=== PATIENT | male | born 1965 | race Caucasian/White ===

== ENCOUNTER 2020-01-24 18:20 | Emergency (ER) | payer BC ==
[2020-01-24] MEDS ORDERED: FLU VACC QS2020-21(6MOS UP)/PF 60 MCG/0.5 ML SYRINGE IM ONE (19:15)
--- NOTE | 2020-01-24 19:18 | EDM.PDOC ---
ED HPI GENERAL MEDICAL PROBLEM - General Chief Complaint: Respiratory Problem Stated Complaint: SOB/COVID + Time Seen by Provider: 01/24/20 18:50 Source of Information: Reports: Patient History Limitations: Reports: No Limitations - History of Present Illness INITIAL COMMENTS - FREE TEXT/NARRATIVE: Mr. Collins is a very pleasant 54-year-old gentleman with no chronic medical proble ms, who states that he developed generalized body aches last 01/15/2020, then a fever on and off since 01/18/2020, with a T-max of 102.4 degrees tonight. He and his were tested for the SARS-CoV-2 virus this past 01/20/2020, both receiving a positive result on 01/22/2020. Around that time, the patient also developed dyspnea with exertion, although he denies dyspnea at rest. No other symptoms, such as nasal or sinus congestion, loss of taste or smell, cough, chest pain, palpitations, abdominal pain, or gastrointestinal symptoms. The patient states that he has been taking both acetaminophen and ibuprofen to treat his fever, but that he has not successfully been able to break it. Here in the ED, the patient's initial BP is found be mildly elevated at 148/89, otherwise, the patient is hemodynamically stable, afebrile, saturating 94% on room air. The patient's PCP is Dr. Fabiano Olson. His Orthopedic Surgeon is Dr. Timbo Martinez. He did not receive an influenza vaccine this season, but agreed to receive one here tonight. Generalized Pain Score (Numeric/FACES): 8 - Related Data Allergies Allergy/AdvReac Type Severity Reaction Status Date / Time No Known Allergies Allergy Verified 01/24/20 18:55 Home Meds: Home Meds . [No Known Home Meds] 01/24/20 [History] Past Medical History - Infectious Disease History Infectious Disease History: Reports: Novel Coronavirus (dx'd 01/20/2020) - Past Surgical History HEENT Surgical History: Reports: Oral Surgery (dental extractions) Musculoskeletal Surgical History: Reports: Arthroscopic Knee (right) Social & Family History - Tobacco Use Tobacco Use Status *Q: Never Tobacco User - Caffeine Use Caffeine Use: Reports: Coffee, Soda, Tea - Alcohol Use Alcohol Use History: Yes Alcohol Use Frequency: Socially - Recreational Drug Use Recreational Drug Use: No - Living Situation & Occupation Living situation: Reports: , with Spouse 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 ED EXAM, GENERAL - Physical Exam Exam: See Below Exam Limited By: No Limitations General Appearance: Alert, WD/WN, No Apparent Distress Eye Exam: Bilateral Eye: EOMI, Normal Inspection Ears: Normal External Exam, Hearing Grossly Normal Nose: Normal Inspection Throat/Mouth: Normal Inspection, Normal Lips, Normal Voice, No Airway Compromise Head: Atraumatic, Normocephalic Neck: Normal Inspection, Full Range of Motion Respiratory/Chest: No Respiratory Distress, Lungs Clear, Normal Breath Sounds, No Accessory Muscle Use, Chest Non-Tender. No: Decreased Breath Sounds, Crackles, Rhonchi, Wheezing, Stridor, Prolonged Expiration Cardiovascular: Normal Peripheral Pulses, Regular Rate, Rhythm, No Edema, No Gallop, No JVD, No Murmur, No Rub Peripheral Pulses: 3+: Radial (L), Radial (R) GI/Abdominal: Normal Bowel Sounds, Soft, Non-Tender, No Organomegaly, No Distention, No Abnormal Bruit, No Mass Back Exam: Normal Inspection, Full Range of Motion, NT Extremities: Normal Inspection, Normal Range of Motion, No Pedal Edema, Normal Capillary Refill Neurological: Alert, Oriented, Normal Cognition, No Motor/Sensory Deficits Psychiatric: Normal Affect Skin Exam: Warm, Dry, Intact, Normal Color, No Rash Course - Vital Signs Last Recorded V/S: Last Vital Signs Temp 36.4 C 01/24/20 18:58 Pulse 77 01/24/20 18:58 Resp 20 01/24/20 21:47 BP 146/81 H 01/24/20 21:47 Pulse Ox 93 L 01/24/20 21:47 - Orders/Labs/Meds Orders: Active Orders 24 hr Category Date Time Status Chest 2V [CR] Stat Exams 01/24/20 19:12 Taken Meds: Medications Discontinued Medications Generic Name Dose Route Start Last Admin Trade Name Freq PRN Reason Stop Dose Admin Influenza Virus Vaccine 1 each 01/24/20 19:13 Pharmacy To Dose - Influenza Vaccine IM 01/24/20 19:14 ONETIME ONE Influenza Virus Vaccine 60 mcg 01/24/20 19:15 01/24/20 19:55 Fluzone Quad Syringe IM 01/24/20 19:16 60 mcg .ONCE ONE Administration - Re-Assessments/Exams Free Text/Narrative Re-Assessment/Exam: 01/24/20 19:13 As above, the patient has had generalized body aches since 01/15/2020, a fever on and off since 01/18/2020, then tested positive for COVID-19 on 01/20/2020. He has had dyspnea with exertion for the past couple of days. He has been taking Tylenol and ibuprofen, but states that he cannot break the fever, even though he is afebrile here in the ED. I explained to the patient that unless he is hypoxemic, there is really nothing that we can do to treat his illness, and that he will simply have to put up with the symptoms. Current guidelines are somewhat mixed on the approach to fever; some believe that fever is an important part of the immune response, and to allow it to occur, while others recommend antipyretics, primarily acetaminophen over NSAIDs. I therefore recommended that the patient try to avoid antipyretics, but if he is particularly uncomfortable, to take acetaminophen as needed. The only test that I am recommending today is a baseline chest x-ray, in case his condition worsens. I do not see a need for blood work at this time. 01/24/20 21:02 2-view chest radiograph is read by Marybel as "Patchy ground-glass opacities right and left upper lobe suspicious for bilateral pneumonia." 01/24/20 21:10 Chest x-ray results discussed with the patient. As above, the patient's chest x-ray is consistent with COVID-19. Blood work is not necessary. Going forward, I recommended that the patient continue to monitor his oxygen saturation on his home pulse oximeter, and that if it gets down to the low 90s, that he return to the ED for reevaluation. The patient understands that so long as his oxygen saturation remains high enough that he does not require supplemental oxygen, there is not much that we can do from a medical standpoint. Departure - Departure Time of Disposition: 21:12 Disposition: Home, Self-Care 01 Condition: Good Clinical Impression: COVID-19 - Discharge Information *PRESCRIPTION DRUG MONITORING PROGRAM REVIEWED*: Not Applicable *COPY OF PRESCRIPTION DRUG MONITORING REPORT IN PATIENT SARAI: Not Applicable Instructions: COVID-19, Prevent the Spread of COVID-19 if You Are Sick - [facility] Referrals: Fabiano Olson MD [Primary Care Provider] - Forms: ED Department Discharge Additional Instructions: You were seen in the emergency room for fever, body aches, and shortness of breath, in the setting of testing positive for COVID-19. Work-up in the ER included a chest x-ray, which demonstrated infiltrates in both of your lungs, consistent with COVID-19. As discussed, current guidelines recommend treatment with Tylenol, alone, for discomfort of fever, however, if you are not too uncomfortable, we recommend that you do not treat your fever, as your fever is your immune system trying to fight the COVID-19 virus. It is imperative that you quarantine until you test negative for the virus, twice. Typically, this takes about 10 days, but in some cases, can take weeks or even months. As discussed, unless your oxygen saturation drops low enough that you require supplemental oxygen, there is not much that we can do from a medical standpoint. We recommend that you continue to monitor your oxygen saturation with your home pulse oximeter. If your oxygen saturation drops down to the low 90s, please return to the ER for reevaluation. You were given an influenza vaccine during your ER visit. Sepsis Event Note (ED) - Evaluation Sepsis Screening Result: No Definite Risk - Focused Exam Vital Signs: Vital Signs Temp Pulse Resp BP Pulse Ox 01/24/20 21:47 20 146/81 H 93 L 01/24/20 18:58 36.4 C 77 20 148/89 H 94 L - My Orders Last 24 Hours: My Active Orders 01/24/20 19:12 Chest 2V [CR] Stat - Assessment/Plan Last 24 Hours: My Active Orders 01/24/20 19:12 Chest 2V [CR] Stat
--- NOTE | 2020-01-27 10:35 | CR ---
PROCEDURE INFORMATION: Exam: XR Chest, 2 Views Exam date and time: 01/24/2020 8:30 PM Age: 54 years old Clinical indication: Cough and fever; Patient HX: Symptoms onset last week with fever of 101 TECHNIQUE: Imaging protocol: XR of the chest Views: 2 views. COMPARISON: No relevant prior studies available. FINDINGS: Lungs: Patchy ground-glass opacities right and left upper lobes. Pleural space: Unremarkable. No pleural effusion. No pneumothorax. Heart/Mediastinum: Unremarkable. No cardiomegaly. Bones/joints: Unremarkable. IMPRESSION: Patchy ground-glass opacities right and left upper lobes suspicious for bilateral pneumonia. Thank you for allowing us to participate in the care of your patient. Dictated and Authenticated by: Carter St MD 01/24/2020 9:53 PM Central Time ([place] & [place]) [facility] CENTERGiovana
== END 2020-01-24 21:47 | disposition home or self-care (01) ==
LOC: SUPCPDRO 18:20 → JD.ED 18:20
DX: U07.1 COVID-19 (principal); Z23 Encounter for immunization
CPT/HCPCS: 71046; 71046-26; 90471; 90686; 99282; 99284-25

== ENCOUNTER 2020-01-27 05:44 | Emergency (ER) | payer BC ==
--- NOTE | 2020-01-27 06:08 | EDM.PDOC ---
<Reggie Guzmán - Last Filed: 01/27/20 06:33> ED HPI GENERAL MEDICAL PROBLEM - General Chief Complaint: Respiratory Problem Stated Complaint: COVID+, FEVER SPIKING, SOB Time Seen by Provider: 01/27/20 06:05 - History of Present Illness INITIAL COMMENTS - FREE TEXT/NARRATIVE: 54-year-old male returns TO the emergency room with worsening hypoxia. He is Covid positive. Patient has been symptomatic for about the last 9 days. His cough is perhaps a little worse but he has these coughing spells that are really quite bothersome. With these coughing spells he develops this shooting pain into his left collarbone towards the shoulder. The patient's cough is minimally productive he is brought up small amounts of slightly off-white sputum 3 times. The patient has a home O2 monitor and has seen his O2 saturation goes low as 84%. The patient was tested this last Monday for Covid and and got the positive results on Monday. The patient is using Tylenol and ibuprofen to help control his fevers. Patient thinks with his fevers get high enough he starts hallucinating. Chest Pain Score (Numeric/FACES): 8 - Related Data Allergies Allergy/AdvReac Type Severity Reaction Status Date / Time No Known Allergies Allergy Verified 01/27/20 05:59 Home Meds: Home Meds Acetaminophen/Codeine [Tylenol with Codeine No.3 300MG/30MG] 1 tab PO Q4H PRN #20 tab 01/27/20 [Rx] dexAMETHasone [Dexamethasone] 4 mg PO BID #10 tablet 01/27/20 [Rx] Past Medical History - Infectious Disease History Infectious Disease History: Reports: Novel Coronavirus - Past Surgical History HEENT Surgical History: Reports: Oral Surgery Musculoskeletal Surgical History: Reports: Arthroscopic Knee Social & Family History - Tobacco Use Tobacco Use Status *Q: Never Tobacco User Second Hand Smoke Exposure: No - Caffeine Use Caffeine Use: Reports: None - Recreational Drug Use Recreational Drug Use: No - Living Situation & Occupation Living situation: Reports: , with Spouse 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 Denies: Diaphoresis HEENT: Reports: No Symptoms Respiratory: Reports: Shortness of Breath, Pleuritic Chest Pain (Patient has chest pain with deep breathing and coughing), Cough, Sputum (Small amounts) Cardiovascular: Denies: Dyspnea on Exertion, Palpitations, Syncope Endocrine: Reports: No Symptoms GI/Abdominal: Reports: No Symptoms : Reports: No Symptoms Musculoskeletal: Reports: No Symptoms Skin: Reports: No Symptoms Neurological: Reports: No Symptoms Psychiatric: Reports: Other (I do not know if he has a vivid imagination or hallucinations when his fever goes up but I do not suspect him of being psychotic) Immunologic: Reports: No Symptoms ED EXAM, GENERAL - Physical Exam Exam: See Below Exam Limited By: No Limitations General Appearance: Alert, No Apparent Distress Eye Exam: Bilateral Eye: Normal Inspection Ears: Normal External Exam, Normal Canal, Hearing Grossly Normal, Normal TMs Nose: Normal Inspection, Normal Mucosa, No Blood Throat/Mouth: Normal Inspection, Normal Lips, Normal Teeth, Normal Gums, Normal Oropharynx, Normal Voice, No Airway Compromise Head: Atraumatic, Normocephalic Neck: Normal Inspection, Supple, Non-Tender, Full Range of Motion Respiratory/Chest: No Respiratory Distress, Lungs Clear, Normal Breath Sounds Cardiovascular: Regular Rate, Rhythm, No Edema, No Murmur GI/Abdominal: Normal Bowel Sounds, Soft, Non-Tender Back Exam: Normal Inspection. No: CVA Tenderness (L), CVA Tenderness (R) Extremities: Normal Inspection, Normal Range of Motion, Non-Tender, No Pedal Edema Neurological: Alert, Oriented, Normal Cognition Skin Exam: Warm, Dry, Intact Departure - Departure Disposition: Home, Self-Care 01 Clinical Impression: COVID-19 - Discharge Information Prescriptions: dexAMETHasone [Dexamethasone] 4 mg PO BID #10 tablet Referrals: Fabiano Olsno MD [Primary Care Provider] - Forms: ED Department Discharge Additional Instructions: Return to the emergency room with any questions problems or worsening symptoms. You have been started on dexamethasone, this is a steroid, take 1 twice daily for 5 days. Tylenol with codeine 1-2 tbs q 4 to 6 hr as needed for discomfort or severe cough. Your prescriptions have been sent electronically to [facility] in [place]. Start the dexamethasone this evening. Use Tylenol primarily and you can add in ibuprofen if needed to control fevers and for aches and pains. If your fevers are not bothering you you do not need to treat them. Watch your oxygen level, especially if you develop severe difficulty breathing. Return to ED if your oxygen is running below 90 for more than 1 to 2 hours and/or experiencing severe difficulty breathing. Sepsis Event Note (ED) - Evaluation Sepsis Screening Result: No Definite Risk <Dino Bryant - Last Filed: 01/27/20 08:47> Course - Vital Signs Last Recorded V/S: Last Vital Signs Temp 99.7 F 01/27/20 05:55 Pulse 93 01/27/20 05:55 Resp 24 H 01/27/20 05:55 BP 145/78 H 01/27/20 05:55 Pulse Ox 93 L 01/27/20 05:55 - Orders/Labs/Meds Orders: Active Orders 24 hr Category Date Time Status EKG 12 Lead [EKG Documentation Completion] [RC] STAT Care 01/27/20 06:14 Active Chest 1V Frontal [CR] Stat Exams 01/27/20 06:34 Taken Labs: Laboratory Tests 01/27/20 01/27/20 Range/Units 07:19 07:19 WBC 8.17 (4.23-9.07) K/mm3 RBC 4.59 L (4.63-6.08) M/mm3 Hgb 13.8 (13.7-17.5) gm/dl Hct 40.9 (40.1-51.0) % MCV 89.1 (79.0-92.2) fl MCH 30.1 (25.7-32.2) pg MCHC 33.7 (32.2-35.5) g/dl RDW Std Deviation 40.3 (35.1-43.9) fL Plt Count 195 (163-337) K/mm3 MPV 9.1 L (9.4-12.3) fl Neutrophils % (Manual) 80 H (40-60) % Band Neutrophils % 3 (0-10) % Lymphocytes % (Manual) 9 L (20-40) % Atypical Lymphs % 0 % Monocytes % (Manual) 8 (2-10) % Eosinophils % (Manual) 0 L (0.8-7.0) % Basophils % (Manual) 0 L (0.2-1.2) Platelet Estimate Adequate Anisocytosis 1+ sligh RBC Morph Comment Normal Sodium 137 (136-145) mEq/L Potassium 3.6 (3.5-5.1) mEq/L Chloride 101 (98-107) mEq/L Carbon Dioxide 26 (21-32) mEq/L Anion Gap 13.6 (5-15) BUN 10 (7-18) mg/dL Creatinine 1.0 (0.7-1.3) mg/dL Est Cr Clr Drug Dosing 80.75 mL/min Estimated GFR (MDRD) > 60 (>60) mL/min BUN/Creatinine Ratio 10.0 L (14-18) Glucose 105 (74-106) mg/dL Calcium 8.3 L (8.5-10.1) mg/dL Total Bilirubin 0.6 (0.2-1.0) mg/dL AST 40 H (15-37) U/L ALT 48 (16-63) U/L Alkaline Phosphatase 70 (46-116) U/L Troponin I < 0.017 (0.00-0.056) ng/mL Total Protein 7.1 (6.4-8.2) g/dl Albumin 3.0 L (3.4-5.0) g/dl Globulin 4.1 gm/dL Albumin/Globulin Ratio 0.7 L (1-2) Meds: Medications Discontinued Medications Generic Name Dose Route Start Last Admin Trade Name Freq PRN Reason Stop Dose Admin Dexamethasone 8 mg 01/27/20 06:34 01/27/20 06:46 Dexamethasone PO 01/27/20 06:35 8 mg ONETIME ONE Administration - Re-Assessments/Exams Free Text/Narrative Re-Assessment/Exam: 01/27/20 08:36 Have assumed care from Dr Guzmán at change of shift. I agree with his hx and exam as documented. His CXR shows what looks like mild bilat viral infiltrate, have not received Radiology read yet. Trop is nl, other labs are relatively nl. EKG was good. Sats have been running at 91 to 93 % room air. Will discharge pt home at this time. He has been started on dexamethasone Departure - Departure Time of Disposition: 08:46 Sepsis Event Note (ED) - Focused Exam Vital Signs: Vital Signs Temp Pulse Resp BP Pulse Ox 01/27/20 05:55 99.7 F 93 24 H 145/78 H 93 L
[2020-01-27] MEDS ORDERED: Dexamethasone 4 MG Tab PO ONE (06:34)
--- NOTE | 2020-01-27 10:57 | CR ---
"Addendum created by Andreina Fernandes MD on 01/27/2020 10:43 AM Central Time ([place] & [place]): INITIAL REPORT SUBMITTED IN ERROR FOR PRIOR EXAM OF 01/24/2020. REPORT FOR CURRENT IMAGES OF 01/27/2020 SUBMITTED BELOW: PROCEDURE INFORMATION: Exam: XR Chest, 2 Views Exam date and time: 01/27/2020 7:31 am Age: 54 years old Clinical indication: Cough and fever; Patient HX: Symptoms onset last week with fever of 101 TECHNIQUE: Imaging protocol: XR of the chest Views: 2 views. COMPARISON: CXR 01/24/2020 8:30PM FINDINGS: Lungs: More shallow inspiration on current exam. Patchy ground-glass opacities bilateral lungs are accentuated by shallow inspiration. Pleural space: Unremarkable. No pleural effusion. No pneumothorax. Heart/Mediastinum: Aortic calcifications. No cardiomegaly. Bones/joints: Unremarkable. IMPRESSION: Patchy ground-glass opacities bilateral lungs suspicious for pneumonia and accentuated by more shallow inspiration today compared with 01/24/2020. Initial Report created on 01/27/2020 10:02 AM Central Time ( & [place]): Reason for Exam: Final report, submitted 01/24/2020 9:53:50 PM IMAGING ADMINISTRATOR by Dr. Carter St: Exam submitted for final signature without edit on 01/27/2020 EMMY GALINA | Final Radiology Report CONFIDENTIALITY STATEMENT This report is intended only for use by the referring physician, and only in accordance with law. If you received this in error, call [phone]. Page 2 of 2 PROCEDURE INFORMATION: Exam: XR Chest, 2 Views Exam date and time: 01/24/2020 8:30 PM Age: 54 years old Clinical indication: Cough and fever; Patient HX: Symptoms onset last week with fever of 101 TECHNIQUE: Imaging protocol: XR of the chest Views: 2 views. COMPARISON: No relevant prior studies available. FINDINGS: Lungs: Patchy ground-glass opacities right and left upper lobes. Pleural space: Unremarkable. No pleural effusion. No pneumothorax. Heart/Mediastinum: Unremarkable. No cardiomegaly. Bones/joints: Unremarkable. IMPRESSION: Patchy ground-glass opacities right and left upper lobes suspicious for bilateral pneumonia. Thank you for allowing us to participate in the care of your patient. Dictated and Authenticated by: Andreina Fernandes MD 01/27/2020 10:02 AM Central Time ([place] & [place]) [facility]"
== END 2020-01-27 09:05 | disposition home or self-care (01) ==
LOC: JD.ED 05:44
DX: U07.1 COVID-19 (principal); Z79.899 Other long term (current) drug therapy
CPT/HCPCS: 36415; 71045; 80053; 84484; 85007; 85027; 93005; 99285; J8540; 99283

== ENCOUNTER 2023-04-12 06:00 | Day surgery (SDC) | payer BC ==
[~2023-04-12 06:00] MED LIST: Acetaminophen 325 MG Tab PO SCH; Lactated Ringers 1,000 ML IV SCH; Morphine 8 MG, EPINEPHrine 0.3 MG, Cefuroxime 750 MG, Ketorolac 30 MG, Sodium Chloride ... PRN; Pregabalin 25 MG Cap PO SCH; Sodium Chloride 0.9% 10 ML Syringe FLUSH PRN; Sodium Chloride 0.9% 10 ML Syringe FLUSH SCH; oxyCODONE ER 10 MG TAB.ER PO SCH
[2023-04-12] MEDS ORDERED: Tranexamic Acid 1,000 MG/10 ML Vial ONE (06:07)
[2023-04-12] MEDS ORDERED: Vancomycin 1 GM SDV ONE ×2 (06:07→06:43)
[2023-04-12] MEDS ORDERED: Ropivacaine 0.5% 5 MG/ML 30 ML SDV ONE (06:29)
[2023-04-12] MEDS ORDERED: EPINEPHrine 1 MG/ML SDV ONE (06:30)
[2023-04-12] MEDS ORDERED: Propofol 200 MG/20 ML SDV ONE (06:32)
[2023-04-12] MEDS ORDERED: Midazolam 1 MG/ML 2 ML SDV ONE (06:32)
[2023-04-12] MEDS ORDERED: ceFAZolin 2 GM Vial ONE (06:32)
[2023-04-12] MEDS ORDERED: Lidocaine 2% 5 ML SDV ONE (06:32)
[2023-04-12] MEDS ORDERED: HYDROmorphone 0.5 MG/0.5 ML Syringe IVPUSH PRN (06:50)
[2023-04-12] MEDS ORDERED: Ondansetron 4 MG/2 ML SDV IVPUSH PRN (06:50)
[2023-04-12] MEDS ORDERED: fentaNYL 100 MCG/2 ML SDV ONE (07:34)
[2023-04-12] MEDS ORDERED: Lactated Ringers 1,000 ML ONE (08:31)
[2023-04-12] MEDS ORDERED: Ketorolac 30 MG/ML SDV ONE (08:53)
[2023-04-12] MEDS: fentaNYL 100 MCG/2 ML SDV IVPUSH PRN ×2 (09:03→09:18)
[2023-04-12] MEDS ORDERED: Cyclobenzaprine 10 MG Tab PO PRN (09:15)
[2023-04-12] MEDS ORDERED: oxyCODONE 5 MG Tab PO PRN (09:16)
== END 2023-04-12 13:15 | disposition home or self-care (01) ==
LOC: JD.SDS 06:00
PROVIDERS: ATTEND Orthopaedic Surgery
DX: M17.11 Unilateral primary osteoarthritis, right knee (principal); I10 Essential (primary) hypertension; K21.9 Gastro-esophageal reflux disease without esophagitis; Z86.16 Personal history of COVID-19; Z79.899 Other long term (current) drug therapy
CPT/HCPCS: 01402; 64447; 73560-26-RT; 73560-RT; 97110-GP; 97116-GP; 97161-GP; A9270-GY; C1713; C1776; J0171; J0690; J0697; J1170; J1885; J2250; J2270; J2704; J2795; J3010; J3370; J3490; J7030; J7120